=== PATIENT | female | born 1975 | race Asian ===

== ENCOUNTER 2018-02-26 17:48 | Emergency (ER) | payer OTHER ==
[~2018-02-26] VITALS: Ht 162.6 cm; Wt 56.7 kg
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
[2018-02-26 18:34] VITALS: BP 116/80
[2018-02-26 18:35] VITALS: BP 116/80
--- NOTE | 2018-02-27 11:45 | Diagnostic Imaging Report ---
Indication: Pain Technique: XRAY Chest 1v Comparison: None Findings: Heart size and mediastinal contours are within normal limits given technique. There is no focal consolidation, pneumothorax or pleural effusion. Osseous structures demonstrate no acute abnormality. Impression: No definite radiographic evidence of acute cardiopulmonary disease.
== END 2018-02-26 18:35 ==
LOC: EDBD 17:48 → EMR 18:11
DX: R52 Pain, unspecified (principal); Y04.2XXA Assault by strike against or bumped into by another person, initial encounter; Y92.9 Unspecified place or not applicable
CPT/HCPCS: 71045; 99283